=== PATIENT | female | born 1960 | race Hispanic/Latino ===

== ENCOUNTER 2020-09-27 16:06 | Emergency (ER) | payer BC ==
[~2020-09-27] VITALS: Ht 152.4 cm; Wt 65.3 kg
[2020-09-27 16:41] LABS: BASOPHILS % 0.4 % (0.0-1.0); EOSINOPHILS # (AUTO) 0.1 (0.0-0.4); EOSINOPHILS % 1.5 % (0.0-6.0); HEMATOCRIT 45.9 % (34.2-44.1); HEMOGLOBIN 15.7 g/dL (12.0-16.0); LYMPHOCYTES # (AUTO) 1.9 (1.0-3.2); LYMPHOCYTES % 21.3 % (18.0-39.1); MEAN CORPUSCULAR HEMOGLOBIN 28.1 pg (28-32); MEAN CORPUSCULAR HGB CONC 34.2 g/dL (31-35); MEAN CORPUSCULAR VOLUME 82.1 fL (81-99); MONOCYTES # (AUTO) 0.6 (0.2-0.8); MONOCYTES % 6.2 % (4.4-11.3); NEUTROPHILS # (AUTO) 6.3 (2.1-6.9); PLATELET COUNT 273 x10e3/uL (140-360); RED BLOOD COUNT 5.59 x10e6/uL (3.6-5.1); RED CELL DISTRIBUTION WIDTH 12.5 % (11.7-14.4)
[2020-09-27 16:50] LABS: INR 0.83
[2020-09-27 16:58] LABS: ALANINE AMINOTRANSFERASE 114 IU/L (0-55); ALBUMIN 3.7 g/dL (3.5-5.0); ALBUMIN/GLOBULIN RATIO 0.9 (0.8-2.0); ALKALINE PHOSPHATASE 248 IU/L (40-150); ANION GAP 16.3 mmol/L (8-16); BLOOD UREA NITROGEN 13 mg/dL (7-26); BUN/CREATININE RATIO 18 (6-25); CALCIUM 9.7 mg/dL (8.4-10.2); CARBON DIOXIDE 26 mmol/L (22-29); CHLORIDE 101 mmol/L (98-107); CREATINE KINASE 51 IU/L (29-168); CREATININE, SERUM 0.72 mg/dL (0.57-1.11); EST GLOMERULAR FILTRATION RATE > 60 ML/MIN (60-); GLUCOSE 288 mg/dL (74-118); POTASSIUM 4.3 mmol/L (3.5-5.1); SODIUM 139 mmol/L (136-145)
[2020-09-27 18:25] LABS: CLARITY,URINE CLEAR (CLEAR); COLOR,URINE YELLOW (YELLOW)
[2020-09-27 18:26] LABS: AMPHETAMINES SCREEN,URINE NEGATIVE (NEGATIVE); BENZODIAZEPINES SCREEN,URINE NEGATIVE (NEGATIVE); KETONES,URINE NEGATIVE (NEGATIVE); LEUKOCYTE ESTERASE ,URINE NEGATIVE (NEGATIVE); NITRITE,URINE NEGATIVE (NEGATIVE); PHENCYCLIDINE SCREEN,URINE NEGATIVE (NEGATIVE); PROTEIN,URINE DIPSTICK NEGATIVE (NEGATIVE); URINE UROBILINOGEN 1 mg/dL (0.2 - 1)
[2020-09-27 18:35] LABS: BACTERIA,URINE RARE /HPF; EPITHELIAL CELLS,URINE RARE /LPF
== END 2020-09-27 19:29 | disposition home or self-care (01) ==
LOC: EDBD 16:06 → ER 16:43
DX: H81.10 Benign paroxysmal vertigo, unspecified ear (principal)
CPT/HCPCS: 36415; 70450; 80053; 80307; 81001; 82550; 82553; 84484; 85025; 85610; 85730; 93005; 99284

== ENCOUNTER 2020-11-30 14:20 | Emergency (ER) | payer BC ==
[~2020-11-30] VITALS: Ht 152.4 cm; Wt 65.3 kg
[2020-11-30] MEDS ORDERED: PANTOPRAZOLE SO40 MG PO (16:47)
[2020-11-30] MEDS ORDERED: DICYCLOMINE HCL20 MG PO (16:47)
== END 2020-11-30 17:18 | disposition home or self-care (01) ==
LOC: ER 15:43
DX: R10.11 Right upper quadrant pain (principal); M25.511 Pain in right shoulder
CPT/HCPCS: 71046; 76705; 99283

== ENCOUNTER 2021-01-10 10:30 | Emergency (ER) | payer BC ==
[~2021-01-10 10:30] MED LIST: DICYCLOMINE HCL20 MG PO; PANTOPRAZOLE SO40 MG PO
[2021-01-10] MEDS ORDERED: SODIUM CHLORIDE 0.9% 1000ML 1,000 ML IV STA (11:31)
[2021-01-10 11:59] LABS: BASOPHILS # (AUTO) 0.1 (0.0-0.1); BASOPHILS % 0.4 % (0.0-1.0); EOSINOPHILS # (AUTO) 0.1 (0.0-0.4); EOSINOPHILS % 0.3 % (0.0-6.0); HEMOGLOBIN 15.1 g/dL (12.0-16.0); LYMPHOCYTES # (AUTO) 1.2 (1.0-3.2); LYMPHOCYTES % 6.5 % (18.0-39.1); MEAN CORPUSCULAR HEMOGLOBIN 28.1 pg (28-32); MEAN CORPUSCULAR HGB CONC 34.3 g/dL (31-35); MEAN CORPUSCULAR VOLUME 81.8 fL (81-99); MONOCYTES % 5.5 % (4.4-11.3); NEUTROPHILS # (AUTO) 15.4 (2.1-6.9); NEUTROPHILS % 85.7 % (38.7-80.0); PLATELET COUNT 467 x10e3/uL (140-360); RED BLOOD COUNT 5.38 x10e6/uL (3.6-5.1); RED CELL DISTRIBUTION WIDTH 12.3 % (11.7-14.4)
[2021-01-10] MEDS ORDERED: PIPERACILLIN/TAZOBACTAM 3.375 GM in SODIUM CHLORIDE 0.9% 50ML 50 ML IV SCH (12:00)
[2021-01-10] MEDS ORDERED: HYDROCODONE/APAP 10MG-325MG TAB PO NR (12:22)
[2021-01-10 12:34] LABS: ALBUMIN 3.4 g/dL (3.5-5.0); ALBUMIN/GLOBULIN RATIO 0.8 (0.8-2.0); ANION GAP 16.5 mmol/L (8-16); CALCIUM 9.3 mg/dL (8.4-10.2); CREATININE, SERUM 0.71 mg/dL (0.57-1.11); POTASSIUM 4.5 mmol/L (3.5-5.1)
[2021-01-10 12:46] LABS: CREATINE KINASE MB 0.1 ng/mL (0-5.0)
[2021-01-10] MEDS ORDERED: CEPHALEXIN500 MG PO (14:58)
[2021-01-10] MEDS ORDERED: ULTRAM 50MG50 MG PO (14:58)
[2021-01-10] MEDS ORDERED: BACTRIM DS TAB1 EACH PO (14:58)
[2021-01-10] MEDS ORDERED: HYDROCODONE/APAP 10MG-325MG TAB PO ONE (15:00)
[2021-01-17] MEDS ORDERED: MIRALAX17 GM PO (17:05)
[2021-01-17] MEDS ORDERED: ULTRAM50 MG PO (17:05)
[2021-01-17] MEDS ORDERED: CLEOCIN HCL300 MG PO (17:05)
[2021-01-17] MEDS ORDERED: METFORMIN HCL500 MG PO (17:05)
[2021-01-17] MEDS ORDERED: COLACE100 MG PO (17:05)
[2021-01-17] MEDS ORDERED: ULTRAM 50MG50 MG PO (17:05)
[2021-01-17] MEDS ORDERED: LEVOFLOXACIN250 MG PO (17:05)
[2021-01-17] MEDS ORDERED: GLYBURIDE5 MG PO (17:07)
[2021-01-17] MEDS ORDERED: ZOFRAN4 MG PO (17:11)
== END 2021-01-10 15:02 | disposition home or self-care (01) ==
LOC: ER 11:00
DX: L02.213 Cutaneous abscess of chest wall (principal); R06.02 Shortness of breath; S20.229A Contusion of unspecified back wall of thorax, initial encounter; R53.83 Other fatigue
CPT/HCPCS: 36415; 71260; 80053; 82550; 82553; 83605; 84484; 85025; 87040; 99284; J2543; J7030; U0002